=== PATIENT | male | born 1990 | race Asian ===

== ENCOUNTER 2016-07-20 08:46 | Emergency (ER) | payer OTHER ==
[~2016-07-20] VITALS: Ht 170.2 cm; Wt 55.3 kg
[~2016-07-20 08:46] MED LIST: DIGO0.1267 PO; FURO20TA PO; LISI2.5T5 PO; MAGN400T5 PO; METO25TA3 PO; SPIR25TA PO; VITAMIN C PO; WARF3TAB PO
[2016-07-20 08:55] VITALS: TEMP 36.6; Ht 170.2 cm; Wt 55.3 kg
[2016-07-20 09:15] VITALS: O2SAT 100
--- NOTE | 2016-07-20 09:38 | DIAGNOSTIC IMAGING REPORT ---
CHEST ONE VIEW PORTABLE CLINICAL HISTORY: CHEST PAIN dyspnea COMPARISON STUDY: 03/11/2012 FINDINGS: Interval median sternotomy. Lungs are clear. Diaphragms are smooth. IMPRESSION: No acute process. Electronically signed by: Martin Alegre M.D. 07/20/2016 9:37 AM Dictated Date/Time: 07/20/2016 9:36 AM
[2016-07-20] MEDS ORDERED: MYCO500T4 PO ×2 (09:54)
[2016-07-20] MEDS ORDERED: LISI-729 PO (09:54)
[2016-07-20] MEDS ORDERED: LANS30CA12 PO (09:54)
[2016-07-20] MEDS ORDERED: MYCO250C26 PO (09:55)
[2016-07-20] MEDS ORDERED: TACR1CAP5 PO (09:58)
[2016-07-20] MEDS ORDERED: PRVC/20 PO (09:58)
[2016-07-20] MEDS ORDERED: MULT-506 PO (09:58)
[2016-07-20] MEDS ORDERED: TACR0.5C3 PO (09:58)
[2016-07-20] MEDS ORDERED: FERR28TA2 PO (09:58)
[2016-07-20] MEDS ORDERED: ASPI325T45 PO (09:58)
[2016-07-20] MEDS ORDERED: CALC500T83 PO (09:58)
[2016-07-20] MEDS ORDERED: MAGN1CAP2 PO (09:58)
[2016-07-20 10:23] LABS: PROTHROMBIN TIME (PATIENT) 10.5 SECONDS (9.0-12.0)
[2016-07-20 10:25] LABS: ALKALINE PHOSPHATASE 88 U/L (45-117); ALT/SGPT 25 U/L (12-78); BLOOD UREA NITROGEN 12 mg/dl (7-18); BUN/CREATININE RATIO 15.8 (10-20); CALCIUM 9.5 mg/dl (8.5-10.1); CARBON DIOXIDE 28 mmol/L (21-32); CHLORIDE 101 mmol/L (98-107); CREATININE 0.74 mg/dl (0.60-1.40); GLUCOSE 91 mg/dl (70-99); SODIUM 139 mmol/L (136-145)
[2016-07-20 10:25] LABS: BASO % 0.2 %; BASO ABS # 0.02 K/uL (0-0.2); COMPLETE YES; EOS % 2.2 %; HEMATOCRIT 39.2 % (42-52); IG% 0.2 %; LYMPH % 14.2 %; MEAN CELL VOLUME 88.1 fL (80-100); MEAN CORPUSCULAR HEMOGLOBIN 29.7 pg (25-34); MEAN CORPUSCULAR HGB CONC 33.7 g/dl (32-36); MEAN PLATELET VOLUME 10.4 fL (7.4-10.4); MONO % 7.9 %; NEUT % 75.3 %; PLATELET COUNT 169 K/uL (130-400); RED BLOOD COUNT 4.45 M/uL (4.7-6.1); WHITE BLOOD COUNT 9.86 K/uL (4.8-10.8)
[2016-07-20 10:43] LABS: POTASSIUM 3.8 mmol/L (3.5-5.1)
--- NOTE | 2016-07-20 14:10 | DIAGNOSTIC IMAGING REPORT ---
CT ANGIOGRAM OF THE CHEST CLINICAL HISTORY: Left-sided chest pain. COMPARISON STUDY: Chest x-ray dated 07/20/2016. TECHNIQUE: Following the IV administration of 93 cc of Optiray 320, CT angiogram of the chest was performed from the upper abdomen to the thoracic inlet utilizing the pulmonary embolus protocol. Images are reviewed in the axial, sagittal, and coronal planes. 3-D MIPS images are created and assessed. IV contrast was administered without complication. CT DOSE: 248.30 mGy.cm FINDINGS: Thyroid: Imaged portions of the thyroid gland are normal in size and attenuation. Thoracic aorta: The thoracic aorta is normal in caliber and demonstrates standard 3-vessel arch anatomy. No dissection is seen. Pulmonary vasculature: The pulmonary trunk is normal in caliber. There are no filling defects identified in main, lobar, or segmental pulmonary branches to suggest pulmonary embolus. Heart: The patient is status post midline sternotomy. The heart is normal in size and configuration, and without pericardial effusion. Lungs and pleural spaces: There are trace pleural effusions with dependent atelectasis. No airspace consolidation is seen typical for pneumonia. There are scattered calcified granulomas. The trachea and central airways are clear. Mediastinum: There is no mediastinal lymphadenopathy. Caty: Clear. Axillae: There is no axillary lymphadenopathy. Upper abdomen: Partially visualized upper abdominal viscera is within normal limits. Skeletal structures: No lytic or blastic bony lesions are seen. IMPRESSION: 1. There is no evidence of pulmonary embolus in the main, lobar, or segmental pulmonary arteries. 2. Trace pleural effusions. 3. There is no airspace consolidation typical for pneumonia. Electronically signed by: Aureliano Whitlock M.D. 07/20/2016 2:09 PM Dictated Date/Time: 07/20/2016 2:04 PM
[2016-07-20] MEDS ORDERED: OPTIRAY 320 IV PRN (14:15)
[2016-07-20 14:46] VITALS: BP 99/65; PULSE 103; O2SAT 98
--- NOTE | 2016-07-20 16:31 | EMERGENCY ROOM VISIT NOTE ---
History Report prepared by Sarai: Deisy Saba Under the Supervision of: Dr. Salvador Herzog M.D. First contact with patient: 09:32 Chief Complaint: CHEST PAIN Stated Complaint: CHEST PAIN Nursing Triage Summary: patient report chest pain started last night. increased this morning. now seems to be subsiding a little bit. had heart transplant in jan 2015 in [place]. patient states he does have a little shortness of breath. rates pain a 4 on a 0-10 scale History of Present Illness The patient is a 26 year old male who presents to the Emergency Room with complaints of improving left sided chest discomfort that began about 9 or 10 hours ago. Initially, the pain was constant and a 3-4/10 in severity. Since the pain began it has improved. He notes that he currently only has some discomfort when he takes a deep breath. The pain does not radiate to his neck, back, or arm. He reports an occasional cough last night which has not persisted through the day today. 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 His doctor was suspicious the dilated cardiomyopathy was from infection although there was no definitive evidence. He follows up with cardiologists Dr. Salcido in [place] and Dr. Bagley locally. His most recent follow up with Dr. Salcido was last week. His testing was normal other than a possible pneumomediastinum on x-ray. He did not have an echo at that time. The patient is on anti-rejection medications but forgot to take them this morning because of his pain. He did take his dose yesterday and states he has been compliant with his medications without any missed doses. His most recent dose of aspirin was yesterday. The patient notes that his heart donor was about 36 or 37 years old and the heart was healthy. He had a cardiac catheterization January 2016 that did not reveal any blockages or narrowing. He was asymptomatic at that time. Denies fever, shortness of breath, diarrhea, black or bloody stools, leg swelling, recent illnesses or other symptoms. He denies any recent long travel. He does not smoke, use drugs, or drink alcohol. Source of History: patient Onset: 9-10 hours ago Position: chest (left) Timing: other (improved) Modifying Factors (Worsening): breathing (deep breath) Associated Symptoms: No SOB, No diarrhea, No fevers, No hematochezia, No melena Review of Systems See HPI for pertinent positives & negatives. A total of 10 systems reviewed and were otherwise negative. Past Medical & Surgical Surgical Problems: (1) H/O heart transplant Family History Diabetes mellitus Heart disease Hypertension Social History Smoking Status: Never Smoker Alcohol Use: none Drug Use: none Marital Status: single Occupation Status: [employer] student Current/Historical Medications Scheduled Aspirin (Aspirin), 325 MG PO QAM Calcium (Calcium), 500 MG PO AMPM Ferrous Sulfate (Iron), 65 MG PO Q2D Lansoprazole (Prevacid), 30 MG PO DAILY Lisinopril (Prinivil), 5 MG PO DAILY Magnesium Oxide (Mg Supplement (Magnesium), 400 MG PO DAILY Multivitamin (Multivitamin), 1 TAB PO DAILY Mycophenolate Mofetil (Cellcept), 500 MG PO QAM Mycophenolate Mofetil (Cellcept), 1 CAP PO QAM Pravastatin Sod (Pravastatin Sodium), 20 MG PO QPM Tacrolimus (Prograf), 1 MG PO QAM Tacrolimus (Prograf), 0.5 MG PO QPM Allergies Coded Allergies: No Known Allergies (Unverified , 12/14/11) Physical Exam Vital Signs Date Time Temp Pulse Resp B/P Pulse Ox O2 Delivery O2 Flow Rate FiO2 07/20/16 14:46 103 16 99/65 98 07/20/16 13:15 101 07/20/16 12:45 99 18 105/69 98 Room Air 07/20/16 10:47 105 16 114/67 97 07/20/16 09:15 100 Room Air 07/20/16 09:07 88 07/20/16 08:58 99 Room Air 07/20/16 08:55 36.6 95 20 124/85 99 Room Air Physical Exam Constitutional: Vital signs reviewed. Eyes: Pupils are equal round reactive to light. Conjunctiva are noninjected. ENT: Pharynx is clear without erythema or exudate. Mucous membranes are moist. Neck supple without meningeal signs. Respiratory: Clear to auscultation bilaterally. Breath sounds are equal bilaterally. Cardiovascular: Regular rate and rhythm. No rubs or gallops. GI: Soft, nondistended and nontender. Bowel sounds are present. Musculoskeletal: No peripheral edema. No lower extremity tenderness. Integumentary: No cyanosis. Midline sternotomy scar. Neurological: The patient is awake and alert. No focal deficits. Psychiatric: Normal affect. Medical Decision & Procedures ER Provider Diagnostic Interpretation: Radiology results as stated below per my review and the radiologist's interpretation: CHEST ONE VIEW PORTABLE CLINICAL HISTORY: CHEST PAIN dyspnea COMPARISON STUDY: 03/11/2012 FINDINGS: Interval median sternotomy. Lungs are clear. Diaphragms are smooth. IMPRESSION: No acute process. Electronically signed by: Martin Alegre M.D. 07/20/2016 9:37 AM Dictated Date/Time: 07/20/2016 9:[address] ANGIOGRAM OF THE CHEST CLINICAL HISTORY: Left-sided chest pain. COMPARISON STUDY: Chest x-ray dated 07/20/2016. TECHNIQUE: Following the IV administration of 93 cc of Optiray 320, CT angiogram of the chest was performed from the upper abdomen to the thoracic inlet utilizing the pulmonary embolus protocol. Images are reviewed in the axial, sagittal, and coronal planes. 3-D MIPS images are created and assessed. IV contrast was administered without complication. CT DOSE: 248.30 mGy.cm FINDINGS: Thyroid: Imaged portions of the thyroid gland are normal in size and attenuation. Thoracic aorta: The thoracic aorta is normal in caliber and demonstrates standard 3-vessel arch anatomy. No dissection is seen. Pulmonary vasculature: The pulmonary trunk is normal in caliber. There are no filling defects identified in main, lobar, or segmental pulmonary branches to suggest pulmonary embolus. Heart: The patient is status post midline sternotomy. The heart is normal in size and configuration, and without pericardial effusion. Lungs and pleural spaces: There are trace pleural effusions with dependent atelectasis. No airspace consolidation is seen typical for pneumonia. There are scattered calcified granulomas. The trachea and central airways are clear. Mediastinum: There is no mediastinal lymphadenopathy. Caty: Clear. Axillae: There is no axillary lymphadenopathy. Upper abdomen: Partially visualized upper abdominal viscera is within normal limits. Skeletal structures: No lytic or blastic bony lesions are seen. IMPRESSION: 1. There is no evidence of pulmonary embolus in the main, lobar, or segmental pulmonary arteries. 2. Trace pleural effusions. 3. There is no airspace consolidation typical for pneumonia. Electronically signed by: Aureliano Whitlock M.D. 07/20/2016 2:09 PM Dictated Date/Time: 07/20/2016 2:04 PM Laboratory Results 07/20/16 10:02 Red Blood Count 4.45, Mean Corpuscular Volume 88.1, Mean Corpuscular Hemoglobin 29.7, Mean Corpuscular Hemoglobin Concent 33.7, Mean Platelet Volume 10.4, Neutrophils (%) (Auto) 75.3, Lymphocytes (%) (Auto) 14.2, Monocytes (%) (Auto) 7.9, Eosinophils (%) (Auto) 2.2, Basophils (%) (Auto) 0.2, Neutrophils # (Auto) 7.42, Lymphocytes # (Auto) 1.40, Monocytes # (Auto) 0.78, Eosinophils # (Auto) 0.22, Basophils # (Auto) 0.02 07/20/16 09:11 07/20/16 10:05 Test 07/20/16 09:11 07/20/16 10:02 07/20/16 10:05 Prothrombin Time 10.5 SECONDS (9.0-12.0) Prothromb Time International Ratio 1.0 (0.9-1.1) Activated Partial Thromboplast Time 26.1 SECONDS (21.0-31.0) Partial Thromboplastin Ratio 1.0 D-Dimer 640 ug/L FEU (0-500) Anion Gap 10.0 mmol/L (3-11) Est Creatinine Clear Calc Drug Dose 116.2 ml/min Estimated GFR () 145.5 Estimated GFR (Non- 125.5 BUN/Creatinine Ratio 15.8 (10-20) Calcium Level 9.5 mg/dl (8.5-10.1) Total Bilirubin 0.6 mg/dl (0.2-1) Alanine Aminotransferase (ALT/SGPT) 25 U/L (12-78) Alkaline Phosphatase 88 U/L (45-117) Creatine Kinase MB < 0.5 ng/ml (0.5-3.6) Creatine Kinase MB Ratio (0-3.0) Troponin I < 0.015 ng/ml (0-0.045) C-Reactive Protein 1.28 mg/dl (0-0.29) Pro-B-Type Natriuretic Peptide 113 pg/ml (0-450) Total Protein 7.8 gm/dl (6.4-8.2) Albumin 4.6 gm/dl (3.4-5.0) Lipase 129 U/L (73-393) Digoxin Level 0.1 ng/ml (0.8-2.0) White Blood Count 9.86 K/uL (4.8-10.8) Red Blood Count 4.45 M/uL (4.7-6.1) Hemoglobin 13.2 g/dL (14.0-18.0) Hematocrit 39.2 % (42-52) Mean Corpuscular Volume 88.1 fL (80-100) Mean Corpuscular Hemoglobin 29.7 pg (25-34) Mean Corpuscular Hemoglobin Concent 33.7 g/dl (32-36) Platelet Count 169 K/uL (130-400) Mean Platelet Volume 10.4 fL (7.4-10.4) Neutrophils (%) (Auto) 75.3 % Lymphocytes (%) (Auto) 14.2 % Monocytes (%) (Auto) 7.9 % Eosinophils (%) (Auto) 2.2 % Basophils (%) (Auto) 0.2 % Neutrophils # (Auto) 7.42 K/uL (1.4-6.5) Lymphocytes # (Auto) 1.40 K/uL (1.2-3.4) Monocytes # (Auto) 0.78 K/uL (0.11-0.59) Eosinophils # (Auto) 0.22 K/uL (0-0.5) Basophils # (Auto) 0.02 K/uL (0-0.2) RDW Standard Deviation 39.9 fL (36.4-46.3) RDW Coefficient of Variation 12.5 % (11.5-14.5) Immature Granulocyte % (Auto) 0.2 % Immature Granulocyte # (Auto) 0.02 K/uL (0.00-0.02) Direct Bilirubin 0.1 mg/dl (0-0.2) Aspartate Amino Transf (AST/SGOT) 11 U/L (15-37) Total Creatine Kinase 57 U/L (39-308) Laboratory results as reviewed by me. ECG Indication: chest pain Rate (beats per minute): 87 Rhythm: normal sinus Findings: RBBB, no ectopy ED Course 0939: The patient was evaluated in room C9. A complete history and physical exam was performed. 1128: I reassessed the patient. He said that he is getting chest pains now and then. His heart rate is 101 but he states this is a normal rate for him. 1129: I discussed the case with Dr. Salcido, [facility]. He said that the right bundle branch block is old. He is confident that his pain is not cardiac and does not have concerns for PE. He does not think the patient needs an echo and said that the patient could be discharged home. 1134: I discussed the dulite machine bluer recommendations with the patient. 1214: I reassessed the patient and talked to him about the elevated D-dimer. He agreed to a CT scan. 1427: I reassessed the patient and updated him on his CT scan results. He currently does not have any chest pain. He will follow up with his doctor. The patient was discharged home. Medical Decision This is a 26-year-old male with a history of a cardiac transplant presenting with left-sided chest pain. Differential diagnosis includes pneumonia, pleurisy , pneumothorax, pneumomediastinum, pulmonary embolism. I did perform a limited focused review of portions of the patient's old chart on the electronic medical record. The patient has had no recent pertinent visits to this hospital. I did evaluate the patient as noted above. The patient is presenting with left- sided chest pain which is worse with deep breaths. He states he is not really short of breath. He has a history of cardiac transplant that was seen by his dulite machine bluer at [facility] last week and told everything was fine. He did note when he looked at the radiology report there was some question of pneumomediastinum but he did not talk to his doctor about this. IV access was established. The patient was placed on a continuous groundwater monitoring technician. I did order and personally review the patient's 12-lead EKG and chest x-ray as described above. His chest x-ray does not show a pneumothorax, infiltrate or pneumomediastinum. I did order and review the patient's blood work as noted in the electronic medical record. D-dimer is elevated. After discussion with the patient, I did order a CT of the chest. I did review the images myself as well as the radiology report as described above. There is no evidence of pulmonary embolism or pneumomediastinum. I did discuss the test results with the patient. I did discuss the case with his dulite machine bluer at [facility]. He felt that the patient's chest pain was likely musculoskeletal. I did therefore discharged patient and advise close follow up with his doctor. He was discharged in good condition and given return instructions as outlined below. Consults Time Called: 1120 Consulting Physician: Dr. Salcido [facility] Returned Call: [phone] I discussed the case with him. He said that the right bundle branch block is old. He is confident that his pain is not cardiac and does not have concerns for PE. He does not think the patient needs an echo and said that the patient could be discharged home. Impression Primary Impression: Left sided chest pain Additional Impression: History of heart transplant Scribe Attestation The scribe's documentation has been prepared under my direct and personally reviewed by me in its entirety. I confirm that the note above accurately reflects all work, treatment, procedures, and medical decision making performed by me. Departure Information Dispostion Home / Self-Care Referrals [facility] ([facility]) Patient Instructions My [facility] Additional Instructions You have been examined and treated today on an emergency basis only. This is not a substitute for, or an effort to provide, complete comprehensive medical care. It is impossible to recognize and treat all injuries or illnesses in a single emergency department visit. It is therefore important that you follow up closely with your physician and dulite machine bluer. Call as soon as possible for an appointment. Return immediately for worsening symptoms or if you develop fever , vomiting, shortness of breath or any other concerning symptoms. Problem Qualifiers
[2016-07-22 10:30] LABS: FK506 TACROLIMUS HIGHLY SENS 6.3 MCG/L (5-20)
== END 2016-07-20 14:48 | disposition home or self-care (01) ==
LOC: C.EDB 08:47 → C.EDC 14:48
DX: R07.9 Chest pain, unspecified (principal); Z94.1 Heart transplant status; Z83.3 Family history of diabetes mellitus; Z82.49 Family history of ischemic heart disease and other diseases of the circulatory system; Z79.82 Long term (current) use of aspirin; Z79.899 Other long term (current) drug therapy